=== PATIENT | female | born 1985 | race Caucasian/White ===

== ENCOUNTER 2020-12-30 13:28 | Outpatient (CLI) | payer OTHER, SELFPAY ==
--- NOTE | ~2020-12-30 | XR_ITS ---
EXAMINATION: XR fl inj shoulder RT - MR/CT EXAM DATE: 12/30/2020 15:42 INDICATION: Strain of tendon of right rotator cuff . Chronic right shoulder pain with limited range o f motion. TECHNIQUE: This procedure was performed by Dr. Monty West, radiologist. I discussed procedure inclu ding the risks, benefits and alternatives with the patient. Risks discussed included bleeding and inf ection. The patient understood the risks and agreed to proceed. A time-out was performed to verify the patient's name, date of , and procedure. The skin over lying the right shoulder joint was prepped and draped in usual sterile fashion. Anesthetic was admin istered with 3 milliliters 1% lidocaine subcutaneously. A 22 G needle was advanced under fluoroscopi c guidance into the joint. A total of 10 mL of 1:200 of 529 mg/mL Multihance, 1:4 lidocaine, and 1:4 Omnipaque 240 was instilled. The needle was removed and the entry site was cleaned and dressed. There were no immediate complications. The DAP for this procedure was 0.14 Gycm2. Pulsed dose redu ction fluoroscopy was used with fluoroscopic time of 0.1 minus. A total of 3 images obtained for the exam. The procedure was performed on 12/30/2020. FINDINGS: Real-time fluoroscopy demonstrates the needle and contrast in the right shoulder joint. IMPRESSION: Successful right shoulder joint injection for subsequent MRI. Reviewed, dictated and finalized at location B.
--- NOTE | ~2020-12-30 | MR_ITS ---
EXAMINATION: MR shoulder RT w con DATE: 12/30/2020 15:09 INDICATION: Strain of the right rotator cuff tendons presenting with right shoulder pain and limited range of motion TECHNIQUE: Magnetic resonance imaging (MRI) of the right shoulder was performed following intra-alexa cular gadolinium contrast injection and without intravenous contrast. Details of the glenohumeral aurora nt injection have been dictated separately. Sequences included axial T2-weighted FS FSE, axial T1-we ighted FS FSE, coronal oblique T1-weighted FS FSE, coronal oblique T2-weighted FSE, sagittal T2-weigh paula FS FSE, sagittal T1-weighted FSE, and ABER (abduction external rotation) T1-weighted FS FSE. COMPARISON: None. FINDINGS: Coracoacromial arch: The acromion undersurface is curved in morphology (type II). The coracoacromial ligament is normal. A cromioclavicular joint is normal. Rotator cuff: The supraspinatus, infraspinatus and teres minor are normal. The subscapularis is normal. Normal rota tor cuff muscle bulk and signal. Biceps tendon, glenoid labrum and glenohumeral cartilage: Long head of the biceps tendon is normal. Glenoid labrum and glenohumeral cartilage are normal. Briana l smooth medially curving subtle labral sulcus extending anteriorly from the 12:00 position to a norm al anterosuperior sublingual foramen at the 1:00-1:30 position. Bones and other: Normal marrow signal with no edema, fracture or abnormal marrow replacing process. No abnormal fluid signal in the subacromial/subdeltoid bursa to suggest bursitis. IMPRESSION: 1. Normal right shoulder MRI arthrogram. Reviewed, dictated and finalized at location A.
== END 2020-12-30 13:29 ==
PROVIDERS: Visit Provider Internal Medicine
DX: S46.011A Strain of muscle(s) and tendon(s) of the rotator cuff of right shoulder, initial encounter (principal); S49.91XA Unspecified injury of right shoulder and upper arm, initial encounter; X58.XXXA Exposure to other specified factors, initial encounter
CPT/HCPCS: 23350; 73222; 77002; A9577; Q9966

== ENCOUNTER 2022-03-14 11:59 | Emergency (ER) | payer BC, MEDICAID, SELFPAY ==
[2022-03-14 12:17] VITALS: BP 149/93; PULSE 65; RESP 20; TEMP 37.1; O2SAT 100
--- NOTE | 2022-03-14 12:25 | ED.SKABFB ---
HPI - Skin/Abscess/Foreign Bdy General Chief complaint: Skin/Abscess/Foreign Body Stated complaint: spider bite Source: patient Mode of arrival: ambulatory Limitations: no limitations History of Present Illness HPI narrative: 36-year-old female presented for complaints of possible spider bite to the left domínguez, onset 3 days ago. She states it started as 2 small bumps and has since spread and become more red. Also endorses a new smaller location since yesterday. Endorses the site is tender and feels numb and heavy. She denies itching or drainage to the site. She has been using Campho-Phenique. complaint: rash Related Data Allergies Allergy/AdvReac Type Severity Reaction Status Date / Time pineapple Allergy Swelling Verified 03/14/22 12:21 of Lip/Tongue/Throat hydrocodone [From Vicodin] AdvReac Itching Verified 03/14/22 12:21 Review of Systems Review of Systems: CONSTITUTIONAL: Denies body aches, fever, chills EYES: Denies visual changes, redness, or discharge. ENT: Denies rhinorrhea, congestion, sore throat, or otalgia. CARDIOVASCULAR: Denies chest pain, palpitations, or edema. RESPIRATORY: Denies cough or dyspnea. GASTROINTESTINAL: Denies abdominal pain, nausea, vomiting, or diarrhea. SKIN: left chin rash MUSCULOSKELETAL: Denies back pain, joint pain, or myalgia. NEUROLOGIC: Denies headache, numbness, tingling, or weakness. PMFSH Comments At time of signature, I have reviewed and agree with nursing past medical, surgical, social and family history unless otherwise noted. Please see nursing chart for further information. There is no relevant family history pertinent to the presenting complaint Exam Narrative: GENERAL: Well-appearing, tearful at times due to stress EYES: conjunctivae clear, and EOMI. ENT: Mucous membranes moist. Oropharynx without edema, erythema or lesions. CHEST: Clear to auscultation. HEART: Regular rate and rhythm. SKIN: Warm, dry. left lower subunit with 2 erythematous raised vesicular patches, approx 0.5cm diameter and 3mm diameter; clear drainage, tender to touch, c/w zoster NEURO: Alert and oriented x3. PSYCH: Normal mood and affect Course Course Emergency Course: Patient is aware of diagnosis, understands and agrees to treatment plan. Anticipatory guidance given. Patient agrees to follow-up as directed and is aware of reasons to seek care at the emergency department. Portions of this record may have been created with voice recognition software Level of Care: Express Care Visit Vital Signs Vital signs: Vital Signs Temperature 98.7 F 03/14/22 12:17 Pulse Rate 65 03/14/22 12:17 Respiratory Rate 20 03/14/22 12:17 Blood Pressure 149/93 H 03/14/22 12:17 Pulse Oximetry 100 03/14/22 12:17 Oxygen Delivery Room Air 03/14/22 12:17 Temperature 98.7 F 03/14/22 12:17 Pulse Rate 65 03/14/22 12:17 Respiratory Rate 20 03/14/22 12:17 Blood Pressure 149/93 H 03/14/22 12:17 Pulse Oximetry 100 03/14/22 12:17 Oxygen Delivery Room Air 03/14/22 12:17 Reviewed MDM - Skin/Abscess/Foreign Bdy MDM Narrative Medical decision making narrative: Patient endorses significant stress, rash to left chin is consistent with zoster. Rx valacyclovir, advised supportive measures. Pt is appropriate for outpt treatment and f/u. Instructed patient to go to nearest ER immediately for any worsening symptoms including but not limited to: fever, spreading rash, pain, sore throat, headache, dizziness, chest pain, trouble breathing, or any symptoms concerning to the patient. Differential Diagnosis Differential diagnosis: Likely abscess of skin or subcutaneous tissue, urticaria, herpes zoster, cellulitis and contact dermatitis Discharge Plan Discharge Clinical Impression: Herpes zoster Qualifiers: Herpes zoster complications: without complications Qualified Code(s): B02.9 - Zoster without complications Patient Disposition: Home, Self-Care Condition: Stabl
== END 2022-03-14 12:45 | disposition home or self-care (01) ==
PROVIDERS: Emergency Provider Nurse Practitioner Family; PCP Family Medicine
DX: B02.9 Zoster without complications (principal)
CPT/HCPCS: 99213; G0463

== ENCOUNTER 2025-08-26 12:35 | Emergency (ER) | payer OTHER, SELFPAY ==
--- NOTE | ~2025-08-26 | XR_ITS ---
Examination: XR shoulder LT min 2V Clinical History: FALL ON OUTSTRETCHED ARM, SHOULDER PAIN Comparison: None Technique: 3 views left shoulder Findings/impression: 1. No fracture or dislocation left shoulder. Reviewed, dictated and finalized at location R. T [employer]
[2025-08-26 12:47] VITALS: BP 136/86; PULSE 80; RESP 16; TEMP 36.7; O2SAT 100
--- NOTE | 2025-08-26 13:13 | ED_ITS ---
HPI - Extremity Injury (Upper) General Chief Complaint: Extremity Injury, Upper Stated Complaint: fall Time Seen by Provider: 08/26/25 13:13 Source: patient Mode of arrival: ambulatory Limitations: no limitations History of Present Illness HPI narrative: 39 yo F presents with c/o pain to L shoulder. Fell on stairs on outstretched arm. Painful with movement. All systems reviewed and negative except as noted above. Related Data Home Medications ?Medication ?Instructions ?Recorded ?Confirmed ?Last Taken ?Type ergocalciferol (vitamin D2) 1,250 08/26/25 Unknown H istory mcg (50,000 unit) capsule lurasidone 20 mg tablet mg 08/26/25 Unknown History lurasidone 40 mg tablet mg 08/26/25 Unknown History spironolactone 50 mg tablet mg 08/26/25 Unknown Histo ry Allergies Allergy/AdvReac Type Severity Reaction Status Date / Time pineapple Allergy Swelling Verified 08/26/25 12:45 of Lip/Tongue/Throat hydrocodone (From Vicodin) AdvReac Itching Verified 08/26/25 12:45 PMFSH Comments At time of signature, agree with nursing past medical, surgical, social and family history. There is no relevant family history pertinent to the presenting complaint. Exam Narrative: GENERAL: This is a well-nourished, well-developed patient, in no apparent distress. HEAD: normocephalic, atraumatic. EYES: PERRL. Sclera clear/white. Vision is grossly intact. EARS: External ears normal NOSE: External nose normal NECK: Neck supple, non-tender without lymphadenopathy, masses or thyromegaly. CARDIOVASCULAR: Regular rate and rhythm without murmurs, gallops, or rubs. RESPIRATORY: Clear to auscultation. Breath sounds equal bilaterally. No wheezes, rales, or rhonchi. SKIN: warm, Dry, intact with no suspicious lesions or rash, good texture and turgor. NEURO: awake, alert, and oriented to person, place and time. There were no obvious focal neurologic abnormalities. EXTREMITIES: no tenderness on palpation. normal ROM, pt reports L posterior shoulder pain with movement Course Course Level of Care: Express Care Visit Vital Signs Vital signs: Vital Signs Temperature 36.7 C 08/26/25 12:47 Pulse Rate 80 08/26/25 12:47 Respiratory Rate 16 08/26/25 12:47 Blood Pressure 136/86 08/26/25 12:47 Pulse Oximetry 100 08/26/25 12:47 Temperature 36.7 C 08/26/25 12:47 Pulse Rate 80 08/26/25 12:47 Respiratory Rate 16 08/26/25 12:47 Blood Pressure 136/86 08/26/25 12:47 Pulse Oximetry 100 08/26/25 12:47 Reviewed MDM MDM Narrative Medical decision making narrative: x-ray of left shoulder normal. Discussed results with patient. Recommend ibuprofen. Will follow up with primary care physician if pain not improving. Differential Diagnosis Differential Diagnosis: Differential diagnostic considerations for upper extremity injury include sprain/strain of wrist, fracture of wrist, finger sprain, dislocation of finger, fracture of hand, dislocation of shoulder, fracture of humerus, fracture of clavicle, laceration, tendon injury, carpal tunnel syndrome.? Discharge Plan Discharge Clinical Impression: Left shoulder strain Qualifiers: Encounter type: initial encounter Qualified Code(s): S46.912A - Strain of unspe cified muscle, fascia and tendon at shoulder and upper arm level, left arm, initial encounter Patient Disposition: Home Condition: Stable Instructions: Shoulder Sprain (ED), Shoulder Pain (ED) Additional Instructions: take medications as prescribed. Methocarbamol as a muscle relaxant may cause drowsiness. Do not drive while taking this medication. Apply ice as needed for pain. Avoid heavy lifting. See your doctor if pain is not improving. Patient Language: Palauan Prescriptions: New methocarbamol 500 mg tablet 500 mg PO Q6H PRN (Reason: muscle pain/spasm) Qty: 30 0RF ibuprofen 600 mg tablet 600 mg PO Q6H PRN (Reason: pain) Qty: 30 0RF No Action valacyclovir [Valtrex] 1 gram tablet 1,000 mg PO Q8H 7 Days Qty: 21 0RF ergocalciferol (vitamin D2) 1,250 mcg (50,000 unit) capsule spironolactone 50 mg tablet lurasidone 40 mg tablet lurasidone 20 mg tablet Follow-up/Referrals: PHYSICIAN NOT ON STAFF,NONSTAFF [Primary Care Provider] Time of Disposition: 13:21
== END 2025-08-26 13:25 | disposition home or self-care (01) ==
PROVIDERS: Emergency Provider Nurse Practitioner Family
DX: S46.912A Strain of unspecified muscle, fascia and tendon at shoulder and upper arm level, left arm, initial encounter (principal); W10.9XXA Fall (on) (from) unspecified stairs and steps, initial encounter; F32.A Depression, unspecified
CPT/HCPCS: 73030; 99213; G0463